=== PATIENT | male | born 2000 | race Caucasian/White ===

== ENCOUNTER 2022-10-17 03:23 | Emergency (ER) | payer SELFPAY ==
[~2022-10-17] VITALS: Ht 177.8 cm; Wt 90.0 kg
[2022-10-17] MEDS ORDERED: KETOROLAC 30MG/ML VIAL IM ONE (08:30)
[2022-10-17] MEDS ORDERED: NAP5EC PO (09:05)
[2022-10-17 10:16] VITALS: BP 117/68
== END 2022-10-17 10:18 | disposition home or self-care (01) ==
LOC: ER 03:23
DX: S93.601A Unspecified sprain of right foot, initial encounter (principal); W22.8XXA Striking against or struck by other objects, initial encounter; Y93.89 Activity, other specified; Y92.89 Other specified places as the place of occurrence of the external cause; Y99.8 Other external cause status
CPT/HCPCS: 73630; 96372; 99283; J1885